=== PATIENT | female | born 1950 | race Two or more races ===

== ENCOUNTER 2017-08-10 14:22 | Outpatient (CLI) | payer OTHER ==
[~2017-08-10 14:22] MED LIST: NABUMETONE500 MG PO; PERCOCET 5/3251 TAB PO
== END 2017-08-10 15:39 | disposition home or self-care (01) ==
LOC: MRI 14:22
DX: M25.561 Pain in right knee (principal)
CPT/HCPCS: 73721

== ENCOUNTER 2017-08-10 14:39 | Outpatient (CLI) | payer OTHER | END 2017-08-10 15:39 | disposition home or self-care (01) | LOC: RAD 14:39 | DX: M25.551 Pain in right hip (principal); M25.552 Pain in left hip; M54.5 Low back pain; M25.561 Pain in right knee; M25.562 Pain in left knee ==

== ENCOUNTER 2018-03-27 13:22 | Outpatient (CLI) | payer OTHER | END 2018-03-27 13:24 | disposition home or self-care (01) | LOC: RAD 13:22 | DX: M25.561 Pain in right knee (principal); M25.562 Pain in left knee ==

== ENCOUNTER 2018-05-31 09:08 | Outpatient (CLI) | payer OTHER | END 2018-05-31 09:20 | disposition home or self-care (01) | LOC: RX STUDY 09:08 | DX: R13.14 Dysphagia, pharyngoesophageal phase (principal); K44.9 Diaphragmatic hernia without obstruction or gangrene; K29.40 Chronic atrophic gastritis without bleeding ==

== ENCOUNTER 2018-08-30 09:01 | Outpatient (CLI) | payer OTHER | END 2018-08-30 09:04 | disposition home or self-care (01) | LOC: MAMO-SONO 09:01 | DX: Z12.31 Encounter for screening mammogram for malignant neoplasm of breast (principal); Z87.898 Personal history of other specified conditions; N64.89 Other specified disorders of breast ==

== ENCOUNTER 2019-03-12 10:48 | Outpatient (CLI) | payer OTHER | END 2019-03-12 10:55 | disposition home or self-care (01) | LOC: MRI 10:48 | DX: M25.551 Pain in right hip (principal); M25.552 Pain in left hip; M54.5 Low back pain | CPT/HCPCS: 72148 ==

== ENCOUNTER → 2021-05-22 | Outpatient (CLI) | payer OTHER | END | disposition home or self-care (01) | LOC: RAD 13:55 | PROVIDERS: ATTEND Orthopaedic Surgery | DX: M17.0 Bilateral primary osteoarthritis of knee (principal); M25.561 Pain in right knee; M25.562 Pain in left knee; M25.551 Pain in right hip; M25.552 Pain in left hip | CPT/HCPCS: 73718 ==

== ENCOUNTER 2022-07-19 10:33 | Outpatient (CLI) | payer OTHER | END 2022-07-19 10:48 | disposition home or self-care (01) | LOC: MRI 10:33 | PROVIDERS: ATTEND Family Medicine | DX: M46.47 Discitis, unspecified, lumbosacral region (principal) | CPT/HCPCS: 72148 ==

== ENCOUNTER 2022-08-18 09:52 | Outpatient (CLI) | payer OTHER | END 2022-08-18 09:55 | disposition home or self-care (01) | LOC: RAD 09:52 | DX: M54.51 Vertebrogenic low back pain (principal) ==

== ENCOUNTER 2022-08-26 09:02 | Outpatient (CLI) | payer OTHER | END 2022-08-26 09:17 | disposition home or self-care (01) | LOC: TOM 09:02 | PROVIDERS: ATTEND Neurological Surgery | DX: M54.51 Vertebrogenic low back pain (principal); M43.16 Spondylolisthesis, lumbar region; M48.061 Spinal stenosis, lumbar region without neurogenic claudication ==

== ENCOUNTER 2024-12-14 09:05 | Outpatient (CLI) | payer OTHER | END 2024-12-14 09:08 | disposition home or self-care (01) | LOC: RAD 09:05 | DX: M79.671 Pain in right foot (principal); M25.561 Pain in right knee; M25.461 Effusion, right knee ==

== ENCOUNTER 2024-12-19 07:22 | Outpatient (CLI) | payer OTHER | END 2024-12-19 07:25 | disposition home or self-care (01) | LOC: MRI 07:22 | PROVIDERS: ATTEND General Practice | DX: Z12.31 Encounter for screening mammogram for malignant neoplasm of breast (principal); R60.0 Localized edema; M25.561 Pain in right knee; M25.461 Effusion, right knee | CPT/HCPCS: 73721 ==